=== PATIENT | female | born 1955 | race Caucasian/White ===

== ENCOUNTER → 2020-01-16 | Outpatient (CLI) | payer OTHER, MEDICARE ==
[~2020-01-16] MED LIST: ACETAMINOPHEN 325 MG TAB PO ONE; SODIUM CHLORIDE 0.9% 1000ML 250 ML IVS PRN; diphenhydrAMINE HCL 25 MG CAP PO ONE
[2020-01-17 10:31] VITALS: O2SAT 100
[2020-01-17 17:01] VITALS: BP 123/77; TEMP 98.3
== END ==
LOC: INFRM 14:36
PROVIDERS: ATTEND Internal Medicine Medical Oncology
DX: C90.00 Multiple myeloma not having achieved remission (principal); D64.9 Anemia, unspecified